=== PATIENT | female | born 1975 | race Caucasian/White ===

== ENCOUNTER 2017-04-06 21:24 | Emergency (ER) | payer SELFPAY ==
[2017-04-06 21:28] VITALS: BP 137/94
[2017-04-06] MEDS ORDERED: METHYLPREDNISOLONE INJ 40 MG/1 ML SDV IM ONE (21:53)
[2017-04-06] MEDS ORDERED: PENICILLIN G BENZATHINE 1.2 MILLION UNIT/2 ML DISP.SYRIN IM ONE (22:25)
--- NOTE | 2017-04-06 22:40 | ER Document Report ---
ED General - General Chief Complaint: Rash Stated Complaint: SORE THROAT Time Seen by Provider: 04/06/17 21:44 Notes: Patient is a 41-year-old female presents emergency department 2 complaints. Her primary complaint today is a sore throat. Patient states for the past 2 days she has had a sore throat and painful swallowing. States it feels better swallowing cold liquids. Otherwise she denies any difficulty swallowing solids or liquids, shortness of breath, difficulty breathing. Her other complaint today is a rash of her chest. Patient states that she has let her dogs at the backyard with they have known poison shannon. Patient states that she has been itching the sites but otherwise been localized to her chest into her neck. She denies any recent home products adjustments or new foods. She denies any lip swelling or facial swelling. Otherwise healthy female. She denies any history of diabetes or hypertension TRAVEL OUTSIDE OF THE [place] IN LAST 30 DAYS: No - Related Data Allergies/Adverse Reactions: acetaminophen [From Percocet] Allergy (Verified 04/06/17 21:26) latex Allergy (Verified 04/06/17 21:26) oxycodone [From Percocet] Allergy (Verified 04/06/17 21:26) Past Medical History - Social History Smoking Status: Never Smoker Chew tobacco use (# tins/day): No Frequency of alcohol use: None Drug Abuse: None Family History: Reviewed & Not Pertinent Patient has suicidal ideation: No Patient has homicidal ideation: No - Past Medical History Cardiac Medical History: Reports: Hx Hypertension Endocrine Medical History: Comment Only: Hx Diabetes Mellitus Type 2 - borderline Renal/ Medical History: Denies: Hx Peritoneal Dialysis Past Surgical History: Reports: Hx Appendectomy, Hx Section Review of Systems - Review of Systems Constitutional: No symptoms reported EENT: See HPI Cardiovascular: No symptoms reported Respiratory: No symptoms reported Skin: See HPI -: Yes All other systems reviewed and negative Physical Exam - Vital signs Vitals: Temp Pulse Resp BP Pulse Ox 98.6 F 113 H 18 137/94 H 98 04/06/17 21:26 04/06/17 21:26 04/06/17 21:26 04/06/17 21:26 04/06/17 21:26 - Notes Notes: PHYSICAL EXAM GENERAL: Alert, interacts well. ENT: Oral mucosa moist, tongue midline. Uvula midline. Airway patent. No evidence of tonsillar enlargement, peritonsillar abscess, retropharyngeal abscess. Evidence of pharyngeal erythema without tonsillar exudates NECK: Full range of motion. Supple. Trachea midline. LUNGS: Clear to auscultation bilaterally, no wheezes, rales, or rhonchi. No respiratory distress. HEART: Regular rate and rhythm. No murmurs, gallops, or rubs. ABDOMEN: Soft, nondistended, nontender. No guarding, rebound, or rigidity.. Bowel sounds present in all 4 quadrants. EXTREMITIES: Moves all 4 extremities spontaneously. No edema, radial and dorsalis pedis pulses 2/4 bilaterally. No cyanosis. NEUROLOGICAL: Alert and oriented x4. Normal speech. PSYCH: Normal affect, normal mood. SKIN: Warm, dry, normal turgor. Patient with evidence of isolated vesicular lesions along her chest and her neck and isolated distribution. Blanching without any evidence of purulent material, surrounding induration or tenderness. Course - Re-evaluation Re-evalutation: 04/06/17 22:39 Patient is a 41-year-old female hemodynamically stable, no acute distress afebrile. Rapid strep came back positive. Patient will be treated with IM injection of penicillin. Regarding her rash consistent with contact dermatitis likely due to plant exposure. Patient to continue using calamine lotion and Benadryl at home with addition of steroid. Patient to follow-up with her primary care provider. Patient agrees with plan - Vital Signs Vital signs: Temp Pulse Resp BP Pulse Ox 98.6 F 113 H 18 137/94 H 98 04/06/17 21:26 04/06/17 21:26 04/06/17 21:26 04/06/17 21:26 04/06/17 21:26 Discharge - Discharge Clinical Impression: Strep pharyngitis, Poison shannon Condition: Good Disposition: HOME, SELF-CARE Instructions: Contact Dermatitis ([facility]), Corticosteroid Medication ([facility]), Use of Diphenhydramine, Strep Throat ([facility]) Additional Instructions: Your shots of penicillin today was enough to treat your strep throat. Please follow-up with your primary care doctor. Prescriptions: Methylprednisolone [Medrol Dosepack (4 mg/Tab) 21 Tab/Dosepak] 4 mg PO ASDIR PRN #21 [email or web address] PRN Reason:
== END 2017-04-06 22:53 | disposition home or self-care (01) ==
LOC: ER 21:24
DX: J02.0 Streptococcal pharyngitis (principal); L23.7 Allergic contact dermatitis due to plants, except food
CPT/HCPCS: 99283; 96372; 87880; J2920; J0561